=== PATIENT | female | born 1980 | race Caucasian/White ===

== ENCOUNTER → 2017-09-29 15:54 | Outpatient (CLI) | payer OTHER, SELFPAY ==
--- NOTE | 2017-09-29 15:59 | HPBI_ITS ---
MAMMOGRAPHY - BILATERAL SCREENING REASON FOR EXAM: Female, 37 years old. Routine annual screening examination. PERTINENT HISTORY: Grandmother with breast cancer. Bilateral breast reduction surgery. TECHNIQUE: Digital bilateral breast mandy (3D mammographic acquisition) in the CC and MLO projections. 2-D mediolateral oblique (MLO) and craniocaudad (CC) views of both breasts were obtained. CAD: Full Field Digital Mammography with Computer Added Detection was performed. COMPARISON: None. Baseline examination. FINDINGS: Breast Composition: There are scattered areas of fibroglandular density. There are no dominant masses or suspicious calcifications. No other significant abnormalities are identified. HPBI/SCREENING MAMM (CAD), BILAT IMPRESSION: Negative screening mammogram. Yearly followup mammogram recommended. (A) ASSESSMENT CATEGORY: BIRADS Category 1: Negative. A letter regarding these results will be sent to the patient by the facility within 30 days. Approximately 10% of breast cancers are not detected by mammography. A normal mammogram should not delay biopsy of a clinically suspicious abnormality. [id number] Electronically Signed: Mina Manzano MD at 8:21 EST Tel [phone], Service support ,
== END ==
PROVIDERS: Family Provider Family Medicine; PCP Family Medicine; Visit Provider Obstetrics & Gynecology
DX: Z12.31 Encounter for screening mammogram for malignant neoplasm of breast (principal)
CPT/HCPCS: 77063; 77067

== ENCOUNTER 2018-03-21 08:23 | Day surgery (SDC) | payer OTHER, SELFPAY ==
[2018-03-21] VITALS (7 sets, daily range): BP systolic 110–118; BP diastolic 60–69; PULSE 46–65; RESP 16–18; TEMP 36.4–36.7; O2SAT 95–99; BMI 33.5
--- NOTE | 2018-03-21 | IMM_PTH ---
PATIENT: SOMMER CALDERON LOC: [facility] [place] U#:[id number] AGE/SX: 37/F ROOM: RE03/21/[address]: Dr. Isak Jones MD : 1980 BED: DIS: 03/21/2018 SPEC #: [id number] RECD: 03/22/18 14:13 STATUS: TYLER REQ #: [id number] GO: 03/21/18 00:[address]: Isak Jones DEPT: IMMUNOHISTOCHEMISTRY RECD BY: Tayler Lei ENTERED: 03/22/18 14:14 SP TYPE: IMMUNO OTHR DR: Dr. Neri Morataya MD Tissues: Skin of upper extremity and shoulder Procedures: [place]-1 (initial) CK5-6 (add) P40 (add) S-100 (add) PHYSICIAN & INSTITUTION [place] [address] SPECIMEN INFORMATION: Tissue Source: Melanoma right posterior shoulder Clinical Info: Melanoma right posterior shoulder Specimen Number: [id number] #2 CPT code: 36358, 69907 x3 METHODOLOGY: Deparaffinized sections of prefer/formalin-fixed tissue or PAP/DQ stained slides are incubated with monoclonal/polyclonal antibodies/oligonucleotide probes. Localization is made via biotin free immunoperoxidase method. Appropriate controls are performed and reacted as expected. Results on target cell population are indicated in the following table: RESULTS: ANTIBODY / CLONE RESULT Block 2 S-100 (4C4.9) positive MART-1 (A-103) positive CK5-6 (D5 & 1684) negative P40 (BC28) negative These tests were developed and their performance characteristics determined by [facility]. They may not have been cleared or approved by the U.S. Food and Drug Administration. The FDA has determined that such clearance or approval is not necessary. INTERPRETATION: Melanoma right posterior shoulder, excisional biopsy: Scar and residual invasive malignant melanoma. See comment. DEMARCO:stephen 04/05/18 Comment: The specimen was sent to [email or web address] for expert opinion and above diagnosis is rendered. The complete report is viewable in patient?s EMR. Case has been reviewed in consultation with Dr. Cancino who concurs with the above diagnosis. IDC:[email or web address]
[2018-03-21 08:46] LABS: Internal QC Validated? YES +Cl - CLEAR BKGD; Pregnancy, Urine Negative Negative
--- NOTE | 2018-03-21 10:00 | LES_PTH ---
PATIENT: SOMMER CALDERON [place] [facility] [place][id number] AGE/SX: 37/F ROOM: RE03/21/[address]: Dr. Isak Jones MD : 1980 BED: DIS: 03/21/2018 SPEC #: [id number] RECD: 03/21/18 13:23 STATUS: TYLER REQ #: [id number] GO: 03/21/18 10:[address]: Isak Jones DEPT: SURGICAL PATHOLOGY RECD BY: Harrison Austin ENTERED: 03/21/18 13:35 SP TYPE: Lesion OTHR DR: Dr. Neri Morataya MD Tissues: Skin of upper extremity and shoulder Procedures: Surgery Specimen Level IV HEADER OPERATION: Completion excision melanoma right posterior shoulder PRE-OP DIAGNOSIS: Melanoma right posterior shoulder TISSUE SUBMITTED: Melanoma right posterior shoulder, suture at 12 o?clock MICROSCOPIC DIAGNOSIS Melanoma right posterior shoulder, excisional biopsy: Scar and residual invasive malignant melanoma. See comment. SJ:rg 04/05/18 COMMENT Histologic type: superficial spreading type Tumor thickness: 1.0 mm Mitotic rate: no mitoses identified Ulceration: not identified Regression: not identified Lymphovascular invasion: not identified Perineural invasion: not identified Microsatellitosis: not identified Peripheral margin: see note. Deep margin (base of specimen): negative Note: The tumor is present close (less than 1.0 mm) to the black inked margin. The provided S-100, MART1, CK5/6 and P-40 stains are reviewed. The specimen was sent to [email or web address] for expert opinion and reviewed by Dr. Nino Ramírez and above diagnosis is rendered. The complete report is viewable in the patient?s EMR. The tumor is close (<1 mm) to the black inked margin (12 o?clock margin). Please also make reference to previous specimen from [facility] ([id number]), right lateral shoulder, shave removal with diagnosis of superficial spreading melanoma. Immunohistochemistry ([id number]) supports the above diagnosis. Case has been reviewed in consultation with Dr. Cancino who concurs with the above diagnosis. IDC:AM MICROSCOPIC DESCRIPTION Slides are reviewed. GROSS DESCRIPTION Received in fixative is one container labeled with the patient's name and designated melanoma right posterior shoulder, suture at 12 o'clock. The specimen consists of a round piece of mendez-white skin measuring 1 x 0.9 cm and up to 0.4 cm in thickness. The specimen is oriented by a suture identifying the 12 o?clock position. The specimen is inked as follows: 12 o?clock ? black, 6 o?clock ? blue, 3 o?clock ? green and 9 o?clock ? yellow. The specimen is serially sectioned and submitted entirely in two cassettes as follows: 1 ? 3 and 9 o?clock margin, 2 ? rest of the specimen. / SJ:rg 03/21/18 TC:0 CPT: 89104
--- NOTE | 2018-03-21 10:44 | OP.PN_ITS ---
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 1 cm superficial spreading melanoma right posterior shoulder with a shave thickness of 0.6 mm. 2. Family history of skin cancer. Post-Operative Diagnosis: Same. Surgery/Procedure Performed:: Completion excision 1 cm superficial spreading melanoma right posterior shoulder with a shave thickness of 0.6 mm. Description of Surgical Findings:: 37 year old woman presents with a recent diagnosis of superficial spreading melanoma on her right posterior shoulder that showed a shave thickness of 0.6 mm after a shave biopsy on 02/20/18. She stated the lesion had changed color and had increased on size over the last several months. The pathology report also stated the deep margin was focally involved. She denies any problems with healing of the biopsy scar. Today the patient underwent completion excision 1 cm superficial spreading melanoma right posterior shoulder with a shave thickness of 0.6 mm. Size of defect right posterior shoulder - 1.4 x 1.1 x 0.5 cm. Estimated Blood Loss: 5 ml. Specimen's removed: Superficial spreading melanoma right posterior shoulder with shave thickness of 0.6 mm to Pathology. Drains: None. Type of Anesthesia:: Local MAC - xylocaine with epinephrine and IV sedation. - Admit VTE Documentation VTE Present on Admission: No VTE Mechan Device Prophylaxis: SCD's VTE Pharm Prophylaxis ordered?: No
--- NOTE | 2018-03-21 10:52 | PCM.DC ---
You will use the following diet at home:: No restrictions Discharge Activity: May not drive while taking narcotic pain medications., May Shower - in two days. Return to work on:: 03/29/18 - tentative May shower in (days): 2 May resume sexual activity in: No Restrictions Weight Bearing Status: Weight bearing as tolerated Call your doctor if your incision/area has: Continuous Slow Oozing, Sudden Increased Bleeding, Increased Pain/ Swelling, Increased Redness, Foul Smelling Discharge, Swelling at the incision site Call your doctor if you observe: Fever of 101 or Higher, Coldness, Increased Pain, Shortness of breath, Chest pain, Calf discomfort, Uncontrolled pain Suture Line Care: - - daily dressing changes with silver. will do first dressing change in office tomorrow. Change Dressing in (Days):: 1 - will change in office. Cleanse incision/area with: Soap & Water - may cleanse the wound with soap and water at the time of the dressing changes., - - may get the wound wet in the shower at the time of the dressing changes. Allergies/Adverse Reactions: Allergies Penicillins [PCN] Allergy (Verified 03/16/18 14:20) Rash Medications to take at Discharge B Complex with Vitamin C [B-Complex Plus Vitamin C] 1 ea PO DAILY 02/13/16 Clindamycin HCl [Cleocin] 300 mg PO TID #30 cap 03/21/18 Oxycodone HCl/Acetaminophen [Percocet 5/325] 1 - 2 tab PO 4X/DAY PRN PRN 5 Days #40 tab 03/21/18 The following prescriptions were given: Oxycodone HCl/Acetaminophen [Percocet 5/325] 1 - 2 tab PO 4X/DAY PRN PRN 5 Days #40 tab PRN Reason: Pain Clindamycin HCl [Cleocin] 300 mg PO TID #30 cap Primary Care Physician: Neri Morataya MD [Primary Care Provider] - Test Results: Test results from this visit will be discussed in further detail at your follow-up appointment, if applicable. Please Follow Up With: Isak Jones MD - call [phone] if any questions. When: tomorrow 03/22/18 at 1130 am. Proposed Discharge Date: 03/21/18
--- NOTE | 2018-03-21 10:57 | DCINST_ITS ---
You will use the following diet at home:: No restrictions Discharge Activity: May not drive while taking narcotic pain medications., May Shower - in two days. Return to work on:: 03/29/18 - tentative May shower in (days): 2 May resume sexual activity in: No Restrictions Weight Bearing Status: Weight bearing as tolerated Call your doctor if your incision/area has: Continuous Slow Oozing, Sudden Increased Bleeding, Increased Pain/ Swelling, Increased Redness, Foul Smelling Discharge, Swelling at the incision site Call your doctor if you observe: Fever of 101 or Higher, Coldness, Increased Pain, Shortness of breath, Chest pain, Calf discomfort, Uncontrolled pain Suture Line Care: - - daily dressing changes with silver. will do first dressing change in office tomorrow. Change Dressing in (Days):: 1 - will change in office. Cleanse incision/area with: Soap & Water - may cleanse the wound with soap and water at the time of the dressing changes., - - may get the wound wet in the shower at the time of the dressing changes. Allergies/Adverse Reactions: Allergies Penicillins [PCN] Allergy (Verified 03/16/18 14:20) Rash Medications to take at Discharge B Complex with Vitamin C [B-Complex Plus Vitamin C] 1 ea PO DAILY 02/13/16 Clindamycin HCl [Cleocin] 300 mg PO TID #30 cap 03/21/18 Oxycodone HCl/Acetaminophen [Percocet 5/325] 1 - 2 tab PO 4X/DAY PRN PRN 5 Days #40 tab 03/21/18 The following prescriptions were given: Oxycodone HCl/Acetaminophen [Percocet 5/325] 1 - 2 tab PO 4X/DAY PRN PRN 5 Days #40 tab PRN Reason: Pain Clindamycin HCl [Cleocin] 300 mg PO TID #30 cap Primary Care Physician: Neri Morataya MD [Primary Care Provider] - Test Results: Test results from this visit will be discussed in further detail at your follow- up appointment, if applicable. Please Follow Up With: Isak Jones MD - call [phone] if any questions. When: tomorrow 03/22/18 at 1130 am. Proposed Discharge Date: 03/21/18
--- NOTE | 2018-03-21 23:22 | OP.PCM_ITS ---
Report of Operation Date of Procedure: 03/21/18 Pre-Operative Diagnosis: 1. 1 cm superficial spreading melanoma right posterior shoulder with a shave thickness of 0.6 mm. 2. Family history of skin cancer. Post-Operative Diagnosis: Same. Surgery/Procedure Performed:: Completion excision 1 cm superficial spreading melanoma right posterior shoulder with a shave thickness of 0.6 mm. Description of Surgical Findings:: 37 year old woman presents with a recent diagnosis of superficial spreading melanoma on her right posterior shoulder that showed a shave thickness of 0.6 mm after a shave biopsy on 02/20/18. She stated the lesion had changed color and had increased on size over the last several months. The pathology report also stated the deep margin was focally involved. She denies any problems with healing of the biopsy scar. Patient was informed of the risks and complications of the procedure including alternatives to surgery. These were discussed with the patient personally. Patient voices understanding and wishes to proceed. Some of the risks and complications were included in a form from the [place] [employer]. Size of defect right posterior shoulder - 1.4 x 1.1 x 0.5 cm. carton forming machine tender: None Type of Anesthesia:: Local MAC - xylocaine with epinephrine and IV sedation. Specimen's removed: Superficial spreading melanoma right posterior shoulder with shave thickness of 0.6 mm to Pathology. Drains: None. Estimated Blood Loss (mL): 5 ml. Description of Procedure: Patient was taken to OR in supine position and was given IV sedation. Extra blankets were placed underneath the right shoulder to expose the lesion on the right posterior shoulder. The right posterior shoulder lesion was then prepped and draped in the usual fashion. SCD's were placed for DVT prophylaxis. Perioperative antibiotics were given intravenously. Using xylocaine with epinephrine, the right posterior shoulder lesion was infiltrated. After waiting 5 minutes for the anesthetic to take effect, a completion excision of the shaved melanoma lesion was done with a couple mm margin in all directions thus making it a 1.4 cm excision. The excision was full thickness into the subcutaneous tissue. A suture was placed at the 12 oclock position for pathology orientation. The lesion was then sent to Pathology for analysis to rule out carcinoma. Hemostasis was obtained with electrocautery. The dimensions of the wound after excision of the melanoma lesion was 1.4 x 1.1 x 0.5 cm. The wound was dressed with Aquacel Silver and secured with 3-0 Nylon tie over stent suture dressing. This was followed by a small gauze dressing. Patient tolerated the procedure well and was sent to PACU in satisfactory condition. She will be sent home on antibiotics and pain medication. She will followup in the office tomorrow for removal of the dressing and to instruct the patient on the daily Silver dressing change. She will then followup on a weekly basis until the pathology report is available. Once it is available, as long as the final thickness of the melanoma remains less than 1 mm thus making it a thin melanoma, then can proceed with wide excision of the melanoma with a 1 cm margin in all directions down to the muscular fascia. Reconstruction will be with a local skin flap. If the final thickness is greater than 1 mm, then she would need evaluation at a tertiary center for a sentinel lymph node biopsy prior to the definitive wide excision of the melanoma with reconstruction. Grafts/Implants Used: None. - Complications None. - Admit VTE Documentation VTE Present on Admission: No VTE Mechan Device Prophylaxis: SCD's VTE Pharm Prophylaxis ordered?: No Code Visit Surgery Charges CPT - 31607 ICD-10 - C43.61, Z80.8
== END 2018-03-21 12:04 | disposition home or self-care (01) ==
LOC: SDC 08:27 → AC 08:29
PROVIDERS: Family Provider Family Medicine; PCP Family Medicine; Visit Provider Surgery
PROC: (CPT 11602; principal; 2018-03-21 09:50)
DX: C43.61 Malignant melanoma of right upper limb, including shoulder (principal); Z80.8 Family history of malignant neoplasm of other organs or systems
CPT/HCPCS: 11602; 81025; 88305; 88341; 88342; J7120

== ENCOUNTER → 2018-05-18 11:50 | Outpatient (CLI) | payer OTHER, SELFPAY ==
[2018-05-18 14:38] LABS: PTHIN 90.8 pg/mL (18.4-80.1); Vitamin D,25 Hydroxy 29.7 ng/mL (29.95-100.01)
[2018-05-18 14:41] LABS: ALB/GLOB Ratio 1.1 RATIO (0.9-2.4); AST(SGOT) 17 U/L (15-37); Alanine Aminotransfer ALT/SGPT 26 U/L (13-56); Albumin, Serum 3.9 g/dL (3.2-5.0); Alkaline Phosphatase 83 U/L (45-117); Anion Gap 9 (5-15); BUN 11 mg/dL (7-18); BUN/Creat Ratio 14.1 RATIO (10-20); Calcium,Total 9.8 mg/dL (8.5-10.1); Chloride 105 mmol/L (98-107); Creatinine, Serum 0.78 mg/dL (0.55-1.02); EST Glomerular Filtration Rate 89 mL/min (>60); Est Glom Filt Rate - Afr Amer 107 mL/min (>60); Globulin 3.6 g/dL (2.2-4.2); Glucose 82 mg/dL (74-106); Potassium 4.3 mmol/L (3.5-5.1); Protein, Total 7.5 g/dL (6.4-8.2); Sodium Level 137 mmol/L (136-145); Thyroid Stim Hormone (TSH) 1.22 uIU/mL (0.358-3.74)
== END ==
PROVIDERS: Family Provider Family Medicine; PCP Family Medicine; Visit Provider Family Medicine
DX: E83.52 Hypercalcemia (principal)
CPT/HCPCS: 36415; 80053; 82306; 83970; 84443

== ENCOUNTER → 2018-08-25 14:43 | Outpatient (CLI) | payer OTHER, SELFPAY ==
[2018-08-25 16:19] LABS: Free T3 2.9 pg/mL (2.18-3.98); T4 Free Direct 0.89 ng/dL (0.76-1.46); T4 Total, Thyroxin 6.6 ug/dL (4.8-13.9); Thyroid Stim Hormone (TSH) 1.18 uIU/mL (0.358-3.74)
[2018-08-25 16:23] LABS: Hemoglobin A1c 6.1 % (4.2-6.3)
[2018-08-25 16:26] LABS: T3 Total - Triiodothyronine 1.21 ng/mL (0.6-1.81)
[2018-08-31 08:49] LABS: HPV Reflexed? NOT INDICATED
== END ==
PROVIDERS: Visit Provider Obstetrics & Gynecology
DX: N92.6 Irregular menstruation, unspecified (principal); Z12.4 Encounter for screening for malignant neoplasm of cervix; Z86.32 Personal history of gestational diabetes
CPT/HCPCS: 83036; 84436; 84439; 84443; 84480; 84481; 87624; 88175; G0145

== ENCOUNTER → 2018-10-02 11:53 | Outpatient (CLI) | payer OTHER, SELFPAY ==
[2018-04-05 08:42] VITALS: BMI 33.3
[2018-10-02 13:11] LABS: PTHIN 59.6 pg/mL (18.4-80.1); Vitamin D,25 Hydroxy 23.1 ng/mL (29.95-100.01)
[2018-10-02 13:17] LABS: Anion Gap 9 (5-15); BUN 14 mg/dL (7-18); Calcium,Total 9.7 mg/dL (8.5-10.1); Chloride 107 mmol/L (98-107); Creatinine, Serum 0.78 mg/dL (0.55-1.02); EST Glomerular Filtration Rate 89 mL/min (>60); Est Glom Filt Rate - Afr Amer 107 mL/min (>60); Glucose 88 mg/dL (74-106); Potassium 4.3 mmol/L (3.5-5.1); Sodium Level 136 mmol/L (136-145); Thyroid Stim Hormone (TSH) 1.23 uIU/mL (0.358-3.74)
== END ==
PROVIDERS: Visit Provider Family Medicine
DX: E21.1 Secondary hyperparathyroidism, not elsewhere classified (principal); E83.52 Hypercalcemia
CPT/HCPCS: 36415; 80048; 82306; 83970; 84443

== ENCOUNTER → 2019-09-12 11:02 | Outpatient (CLI) | payer OTHER, SELFPAY ==
[2018-04-05 08:42] VITALS: BMI 33.3
[2019-09-12 14:19] LABS: Follicle Stimulating Hormone 5.7 mIU/mL
[2019-09-15 15:23] LABS: Anti-Mullerian Hormone,Serum 2.46 ng/mL (.)
== END ==
PROVIDERS: Visit Provider Obstetrics & Gynecology
DX: E28.8 Other ovarian dysfunction (principal); Z86.32 Personal history of gestational diabetes
CPT/HCPCS: 36415; 83001; 83036; 83516

== ENCOUNTER → 2019-09-28 10:52 | Outpatient (CLI) | payer OTHER, SELFPAY ==
[2018-04-05 08:42] VITALS: BMI 33.3
[2019-09-28 13:56] LABS: Progesterone Level 7.45 ng/mL (See Comment)
== END ==
PROVIDERS: Visit Provider Obstetrics & Gynecology
DX: E28.8 Other ovarian dysfunction (principal)
CPT/HCPCS: 36415; 84144

== ENCOUNTER → 2020-07-28 09:20 | Outpatient (CLI) | payer OTHER, SELFPAY ==
[2018-04-05 08:42] VITALS: BMI 33.3
--- NOTE | 2020-07-28 09:26 | RAD_ITS ---
STUDY: X-RAY - RIGHT HAND, ATTENTION FOR FINGER REASON FOR EXAM: Female, 40 years old. PT FELL, NOW PAIN AND SWELLING ULNAE PIP AREA TECHNIQUE: 3 view(s) of the finger were obtained. COMPARISON: None. FINDINGS: Normal metacarpal head. Normal metacarpophalangeal joint. Normal proximal phalanx. Normal middle phalanx. Normal distal phalanx. Normal interphalangeal joint. RAD/Finger(s) Min 2 Views IMPRESSION: Normal x-ray examination of the finger. Electronically Signed: Yissel Montalvo MD at 5:54 EST , Service support ,
== END ==
PROVIDERS: PCP Family Medicine; Referring Provider Family Medicine; Visit Provider Family Medicine
DX: S63.601A Unspecified sprain of right thumb, initial encounter (principal)
CPT/HCPCS: 73140

== ENCOUNTER → 2020-09-10 09:34 | Outpatient (CLI) | payer OTHER, SELFPAY ==
[2018-04-05 08:42] VITALS: BMI 33.3
[2020-09-15 16:22] LABS: HPV APTIMA, High Risk Negative (Negative)
== END ==
PROVIDERS: PCP Family Medicine; Visit Provider Obstetrics & Gynecology
DX: Z12.4 Encounter for screening for malignant neoplasm of cervix (principal)
CPT/HCPCS: 87624; 88175; G0145

== ENCOUNTER 2021-12-07 09:48 | Outpatient (CLI) | payer OTHER, SELFPAY ==
--- NOTE | 2021-12-07 09:51 | BI_ITS ---
MAMMOGRAPHY - BILATERAL SCREENING REASON FOR EXAM: Female, 41 years old. Routine annual screening examination. PERTINENT HISTORY: Grandmother with breast cancer. History of prior bilateral breast reduction surgery. TECHNIQUE: Digital bilateral breast mynor (3D mammographic acquisition) in the CC and MLO projections. 2-D mediolateral oblique (MLO) and craniocaudad (CC) views of both breasts were obtained. CAD: Full Field Digital Mammography with Computer Added Detection was performed. COMPARISON: Comparison is made with prior study dated 09/29/2017. FINDINGS: Breast Composition: There are scattered areas of fibroglandular density. There are no dominant masses or suspicious calcifications. No other significant abnormalities are identified. There has been no significant change since the prior study. BI/SCRN MAMM (CAD)W/MYNOR BILAT IMPRESSION: Stable bilateral screening mammogram. Yearly follow-up mammogram recommended. (A) ASSESSMENT CATEGORY: BIRADS Category 1: Negative. A letter regarding these results will be sent to the patient by the facility within 30 days. Approximately 10% of breast cancers are not detected by mammography. A normal mammogram should not delay biopsy of a clinically suspicious abnormality. [id number] Electronically Signed: Mina Manzano MD at 10:34 EDT ,
== END 2021-12-07 23:59 | disposition home or self-care (01) ==
LOC: OPBI 09:49
PROVIDERS: PCP Family Medicine; Referring Provider Obstetrics & Gynecology; Visit Provider Obstetrics & Gynecology
DX: Z12.31 Encounter for screening mammogram for malignant neoplasm of breast (principal)
CPT/HCPCS: 77063; 77067

== ENCOUNTER 2022-12-28 10:03 | Emergency (ER) | payer OTHER, SELFPAY ==
[2022-12-28 10:04] VITALS: BP 152/106; PULSE 66; RESP 14; TEMP 36.4; O2SAT 100; BMI 34.7
--- NOTE | 2022-12-28 10:45 | CT_ITS ---
STUDY: CT ABDOMEN AND PELVIS WITHOUT CONTRAST REASON FOR EXAM: Female, 42 years old. Left flank pain and left lower quadrant pain since 9:00 this morning. RADIATION DOSAGE (If Supplied By Facility): CTDIvol = ( 20.76 ) mGy, DLP = ( 994.35 ) mGycm TECHNIQUE: Transaxial images were obtained from the dome of the diaphragm to the symphysis pubis without oral contrast, and without intravenous contrast. Sagittal and coronal images were reconstructed. Individualized dose optimization techniques were used for this CT. COMPARISON: None. FINDINGS: Tiny calcified granuloma in the posterior medial segment of the left lower lobe. Calcified left hilar lymph node. The visualized portions of the heart are within normal limits. There is decreased attenuation of the liver consistent with steatosis. There are multiple gallstones. There is a benign calcified granuloma of the spleen. Normal pancreas. Normal bilateral adrenal glands. Normal right kidney. There is engorgement of the left kidney. Mild degree of the left hydronephrosis and left hydroureter due to a 3.7 mm calculus at the base of the bladder on the right side most likely representing a recently passed left ureteral calculus. Normal visualized stomach. Normal small intestine. Normal colon. The appendix is visualized and appears normal. Normal abdominal aorta. Normal inferior vena cava. Normal retroperitoneum. Normal urinary bladder. There is a small umbilical hernia containing fat. Normal osseous structures. CT/Abdomen/Pelvis without Cont IMPRESSION: 3.7 mm calculus at the base of the bladder on the left side suggestive of a recently passed left ureteral calculus. Diffuse fatty infiltration of the liver. Multiple gallstones. Electronically Signed: Mina Manzano MD at 11:55 EDT ,
--- NOTE | 2022-12-28 10:46 | EX.ED.DYSGE1 ---
HPI History of Present Illness Chief Complaint: Flank Pain Informant: patient Onset/Context/Timing Onset: Today Context: Sudden Onset Current Severity: Moderate Maximum Severity: Severe Narrative Narrative: Patient presents with rather abrupt onset of left flank pain at 9 AM this morning. She states she felt fine earlier in the day. She states pain has eased up somewhat at this time. She denies recent urinary symptoms. No history of kidney stones. [facility] Medical History Abnormal Pap smear of cervix Skin cancer Home Medications B-complex with vitamin C 1 ea PO DAILY 02/13/16 [History Last Taken 12/22/16 07:00] ascorbic acid (vitamin C) 500 mg capsule,extended release 500 mg PO DAILY 11/22/22 [History Last Taken Unknown] cholecalciferol (vitamin D3) 50 mcg (2,000 unit) capsule 50 mcg PO DAILY 11/22/22 [History Last Taken Unknown] Allergy/AdvReac Type Severity Reaction Status Date / Time Dressing: Non-Medicated Allergy Rash Verified 12/28/22 10:05 Penicillins [PCN] Allergy Rash Verified 12/28/22 10:05 Family History Mother Heart disease Grandmother Breast cancer Colon cancer Grandfather Heart disease Surgical History Broken ankle History of bilateral breast reduction surgery History of History of D&C Status post surgical removal of malignant neoplasm of skin Social History Smoking Status: Never smoker alcohol intake: never substance use type: does not use caffeine: Yes what type of physical activity do you participate in: walking and aerobics frequency: 3-4 times per week seatbelt use: always do you feel safe at home: Yes additional social history: - Ra ROS ROS ED Constitutional Constitutional ED: Denies chills or fever(s) Eyes Eyes: Denies change in vision or discharge from eye(s) ENT ENT ED: Denies discharge from eye(s), rhinorrhea or sore throat Cardiovascular Cardiovascular: Denies chest pain or palpitations Respiratory/Chest Respiratory/Chest: Denies cough or dyspnea Gastrointestinal Gastrointestinal: Reports abdominal pain; Denies diarrhea, nausea or vomiting Genitourinary Genitourinary ED: Denies difficulty urinating or dysuria Musculoskeletal Musculoskeletal: Reports back pain; Denies extremity pain Integumentary Denies Abrasions or rash Neurologic Neurologic: Denies headache(s) or weakness Psychiatric Psychiatric: Denies anxiety or depression Allergic/Immunologic Allergic/Immunologic ED: Denies lip swelling or urticaria EXAM Physical Exam Const Vital Signs: 12/28/22 10:04 12/28/22 10:19 Temperature 97.5 F L Temperature Source Temporal Pulse Rate 66 Respiratory Rate 14 Respiratory Effort Normal Non-Labored Respiratory Pattern Normal Blood Pressure 152/106 H Blood Pressure Mean 121 Pulse Ox 100 Oxygen Delivery Method Room Air Positive well nourished and well developed General Appearance ED: well developed HEENT Reports normocephalic and head/scalp atraumatic Eyes PERRL and EOMs intact bilaterally Neck supple Chest Wall inspection of chest normal and palpation of chest normal Resp normal respiratory effort and clear to auscultation bilaterally Cardio regular rate and regular rhythm GI GI Narrative: Abdomen soft with no reproducible tenderness. Hypoactive bowel sounds noted. Palpation: soft Back/Spine no CVA tenderness Extremity normal to inspection Neuro oriented x3 and no sensory deficits noted Sensorium / Orientation: alert Motor Exam: strength 5/5 throughout Psych mental status grossly normal Skin no rashes or lesions noted MDM MDM MDM Narrative Medical decision making narrative: Patient was given morphine, Toradol, Zofran, IV fluids. Labwork obtained to evaluate for leukocytosis, anemia, and electrolyte derangement. Urinalysis obtained to evaluate for infection/hematuria. CT flank obtained given high suspicion for kidney stone. Lab Data Attestation: I reviewed the patient's lab results. Labs: Laboratory Results - last 24 hr 12/28/22 12/28/22 12/28/22 10:20 10:20 10:20 WBC 9.1 RBC 4.08 L Hgb 12.3 Hct 36.2 L MCV 88.7 MCH 30.1 MCHC 34.0 RDW Std Deviation 39.0 RDW Coeff of Umesh 12.1 Plt Count 357 MPV 9.5 Immature Gran % (Auto) 0.200 Neut % (Auto) 57.4 Lymph % (Auto) 36.1 [place] % (Auto) 5.1 Eos % (Auto) 0.9 Baso % (Auto) 0.3 Absolute Neuts (auto) 5.2 Absolute Lymphs (auto) 3.30 Nucleated RBC % 0 Sodium 139 Potassium 4.2 Chloride 108 H Carbon Dioxide 24.0 Anion Gap 7 BUN 11 Creatinine 0.93 Estim Creat Clear Calc 74.52 Est GFR (MDRD) Af Amer 85 Est GFR (MDRD) Non-Af 71 BUN/Creatinine Ratio 11.8 Glucose 120 H Calcium 10.8 H Serum , Qual NEGATIVE Urine Color Urine Clarity Urine pH Ur Specific [place] Urine Protein Urine Glucose (UA) Urine Ketones Urine Occult Blood Urine Nitrite Urine Bilirubin Urine Urobilinogen Ur Leukocyte Esterase Urine RBC Urine WBC Ur Squamous Epith Cells Amorphous Sediment Urine Bacteria Urine Mucus 12/28/22 11:00 WBC RBC Hgb Hct MCV MCH MCHC RDW Std Deviation RDW Coeff of Umesh Plt Count MPV Immature Gran % (Auto) Neut % (Auto) Lymph % (Auto) [facility] % (Auto) Eos % (Auto) Baso % (Auto) Absolute Neuts (auto) Absolute Lymphs (auto) Nucleated RBC % Sodium Potassium Chloride Carbon Dioxide Anion Gap BUN Creatinine Estim Creat Clear Calc Est GFR (MDRD) Af Amer Est GFR (MDRD) Non-Af BUN/Creatinine Ratio Glucose Calcium Serum , Qual Urine Color Yellow Urine Clarity Sl. Cloudy Urine pH 7.0 Ur Specific [place] 1.015 Urine Protein 30 H Urine Glucose (UA) Normal Urine Ketones Negative Urine Occult Blood 150 H Urine Nitrite Negative Urine Bilirubin Negative Urine Urobilinogen Normal Ur Leukocyte Esterase 25 H Urine RBC 10-25 SEEN Urine WBC 0-5 SEEN Ur Squamous Epith Cells 0-5 SEEN Amorphous Sediment 1+ Urine Bacteria 1+ Urine Mucus 0 SEEN Radiography Diagnostic Testing: Clinical Impression(s) from Imaging Studies Abdomen/Pelvis CT 12/28/22 10:45 IMPRESSION: 3.7 mm calculus at the base of the bladder on the left side suggestive of a recently passed left ureteral calculus. Diffuse fatty infiltration of the liver. Multiple gallstones. Electronically Signed: Mina Manzano MD at 11:55 EDT , Treatment and Re-Evaluation :: On repeat evaluation patient resting much more comfortably. CBC and chemistry studies unremarkable. Renal function is normal. test is negative. Urinalysis does reveal 10-25 RBCs with no sign of infection. CT flank reveals a 3.7 mm calculus at the base of the bladder suggesting a recently passed kidney stone. Multiple gallstones are also noted. Test results are discussed with patient as well as at bedside. She will continue supportive care at home as advised her she may get some spasms even though she has passed the stone into the bladder. Return instructions provided. Discharge Plan Triage Chief Complaint: Flank Pain ED Provider: Agatha Resendez Dx/Rx/DC Orders Clinical Impression: Kidney stone Instructions: ED Kidney Stone, Passed Prescriptions: No Action cholecalciferol (vitamin D3) 50 mcg (2,000 unit) capsule 50 mcg PO DAILY ascorbic acid (vitamin C) 500 mg capsule, extended release 500 mg PO DAILY B-complex with vitamin C 1 EACH tablet 1 ea PO DAILY Primary Care Provider: Neri Morataya Referrals: Neri Morataya MD [Primary Care Provider] - As Needed Disposition Disposition: Home, Self Care
[2022-12-28] MEDS: Morphine 4 MG/ML Syringe IV (10:57)
[2022-12-28] MEDS: Ketorolac 30 MG/ML Syringe IV (10:57)
[2022-12-28] MEDS: Ondansetron 4 MG/2 ML Vial IV (10:57)
[2022-12-28] MEDS: 0.9% Normal Saline 1,000 ML 250 ML IV (10:59)
[2022-12-28 11:07] LABS: Mucous, Urine 0 SEEN /hpf (<or=2+)
[2022-12-28 11:07] LABS: Absolute Neutrophil Count 5.2 X10^3/uL (2.0-7.7); Basophil# 0.03 X10^3/uL; Basophil% 0.3 % (0-1); Eosinophil# 0.08 X10^3/uL; Eosinophils% 0.9 % (0-5); Hematocrit 36.2 % (37-47); Hemoglobin 12.3 g/dL (12.0-15.0); Lymphocyte % 36.1 % (19-41); Mean Corpuscular Hgb 30.1 pg (27.0-32.0); Mean Corpuscular Volume 88.7 fL (81-99); Mean Platelet Vol. 9.5 fl (6.2-12.0); Monocyte# 0.47 X10^3/uL; Monocyte% 5.1 % (0-10); NRBC Flagged by Analyzer 0 % (0-5); Neutrophil # 5.24 X10^3/uL (2.7-7.7); Neutrophil % 57.4 % (47-70); Platelet Count 357 K/mm3 (150-450); RBC Distribution Width CV 12.1 % (11.6-14.6); Red Blood Count 4.08 M/mm3 (4.2-5.4); White Blood Count 9.1 K/mm3 (4.4-11.0)
[2022-12-28 11:10] LABS: Color, Urine Yellow (Yellow); Glucose, Dipstick Normal (Normal); Ketone-Dipstick Negative (Negative); Leukocyte Esterase-Dipstick 25 /ul (Negative); Nitrite-Dipstick Negative (Negative); Occult Blood-Urine 150 /ul (Negative); Protein-Dipstick 30 mg/dl (Negative); Specific Gravity, Urine 1.015 (1.002-1.030); Urine Bilirubin Dipstick Negative (Negative); Urine Clarity Sl. Cloudy (Clear); Urine Urobilinogen Normal (Normal)
[2022-12-28 11:16] LABS: Amorphous Sediment 1+; Bacteria 1+ /hpf (None Seen); Red Blood Cells-Urine 10-25 SEEN /hpf (0-5); Squamous Epithelial Cells - UA 0-5 SEEN /hpf (5-10); White Blood Cells 0-5 SEEN /hpf (0-5)
[2022-12-28 11:21] LABS: Internal QC Validated? YES +Cl - CLEAR BKGD; Pregnancy, Serum, hCG Quali. NEGATIVE Negative
[2022-12-28 11:23] LABS: Anion Gap 7 (5-15); BUN 11 mg/dL (7-18); BUN/Creat Ratio 11.8 RATIO (10-20); Calcium,Total 10.8 mg/dL (8.5-10.1); Chloride 108 mmol/L (98-107); Creatinine, Serum 0.93 mg/dL (0.55-1.02); EST Glomerular Filtration Rate 71 mL/min (>60); Est Glom Filt Rate - Afr Amer 85 mL/min (>60); Estimated Creatinine Clearance 74.52 ml/min; Glucose 120 mg/dL (74-106); Potassium 4.2 mmol/L (3.5-5.1); Sodium Level 139 mmol/L (136-145)
[2022-12-28 12:27] VITALS: BP 115/82; PULSE 76; RESP 14; O2SAT 99
== END 2022-12-28 12:32 | disposition home or self-care (01) ==
PROVIDERS: Emergency Provider Emergency Medicine; PCP Family Medicine; Visit Provider Emergency Medicine
DX: N20.0 Calculus of kidney (principal)
CPT/HCPCS: 74176; 80048; 81001; 84703; 85025; 96374; 96375; 99283; J7030; A4216; J2405

== ENCOUNTER → 2023-01-31 | Outpatient (CLI) | payer OTHER, SELFPAY ==
--- NOTE | 2023-01-31 10:03 | BI_ITS ---
MAMMOGRAPHY - BILATERAL SCREENING REASON FOR EXAM: Female, 42 years old. Routine annual screening examination. PERTINENT HISTORY: Grandmother with breast cancer. History of prior bilateral breast reduction surgery. TECHNIQUE: Digital bilateral breast mynor (3D mammographic acquisition) in the CC and MLO projections. 2-D mediolateral oblique (MLO) and craniocaudad (CC) views of both breasts were obtained. CAD: Full Field Digital Mammography with Computer Added Detection was performed. COMPARISON: Comparison is made with prior study dated December 07, 2021 and September 29, 2017. FINDINGS: Breast Composition: There are scattered areas of fibroglandular density. There are no dominant masses or suspicious calcifications. No other significant abnormalities are identified. There has been no significant change since the prior study. BI/SCRN MAMM (CAD)W/MYNOR BILAT IMPRESSION: Stable bilateral screening mammogram. Yearly follow-up mammogram recommended. (A) ASSESSMENT CATEGORY: BIRADS Category 1: Negative. A letter regarding these results will be sent to the patient by the facility within 30 days. Approximately 10% of breast cancers are not detected by mammography. A normal mammogram should not delay biopsy of a clinically suspicious abnormality. [id number] Electronically Signed: Mnia Manzano MD at 10:56 EDT ,
== END | disposition home or self-care (01) ==
LOC: OPBI 10:02
PROVIDERS: PCP Family Medicine; Referring Provider Registered Nurse; Visit Provider Registered Nurse
DX: Z12.31 Encounter for screening mammogram for malignant neoplasm of breast (principal); Z80.3 Family history of malignant neoplasm of breast
CPT/HCPCS: 77063; 77067

== ENCOUNTER → 2023-12-03 | Outpatient (CLI) | payer OTHER, SELFPAY ==
[2023-12-03 10:00] LABS: Hemoglobin A1c 5.3 % (3.8-5.6)
[2023-12-03 10:04] LABS: ALB/GLOB Ratio 1.1 RATIO (0.9-2.4); AST(SGOT) 17 U/L (15-37); Alanine Aminotransfer ALT/SGPT 25 U/L (13-56); Albumin, Serum 3.9 g/dL (3.2-5.0); Alkaline Phosphatase 74 U/L (45-117); Anion Gap 4 (5-15); BUN 13 mg/dL (7-18); BUN/Creat Ratio 15.2 RATIO (10-20); Calcium,Total 10.9 mg/dL (8.5-10.1); Chloride 108 mmol/L (98-107); Cholesterol 162 mg/dL (200); Creatinine, Serum 0.85 mg/dL (0.55-1.02); EST Glomerular Filtration Rate 77 mL/min (>60); Est Glom Filt Rate - Afr Amer 94 mL/min (>60); Globulin 3.5 g/dL (2.2-4.2); Glucose 97 mg/dL (74-106); High Density Lipoprotein 28 mg/dL; Potassium 4.5 mmol/L (3.5-5.1); Protein, Total 7.4 g/dL (6.4-8.2); Sodium Level 137 mmol/L (136-145); T4 Free Direct 1.02 ng/dL (0.76-1.46); Thyroid Stim Hormone (TSH) 1.15 uIU/mL (0.358-3.74); Triglycerides 159 mg/dL; Very Low Density Lipoprotein 32 mg/dL (5-40)
== END | disposition home or self-care (01) ==
LOC: LAB 09:00
PROVIDERS: PCP Family Medicine; Referring Provider Registered Nurse; Visit Provider Registered Nurse
DX: Z00.00 Encounter for general adult medical examination without abnormal findings (principal); Z13.220 Encounter for screening for lipoid disorders; Z13.29 Encounter for screening for other suspected endocrine disorder
CPT/HCPCS: 36415; 80053; 80061; 83036; 84439; 84443

== ENCOUNTER → 2024-02-02 | Outpatient (CLI) | payer OTHER, SELFPAY ==
--- NOTE | 2024-02-02 08:02 | BI_ITS ---
MAMMOGRAPHY - BILATERAL SCREENING REASON FOR EXAM: Female, 43 years old. Routine annual screening examination. PERTINENT HISTORY: Grandmother with breast cancer. History of prior bilateral breast reduction surgery. TECHNIQUE: Digital bilateral breast mynor (3D mammographic acquisition) in the CC and MLO projections. 2-D mediolateral oblique (MLO) and craniocaudad (CC) views of both breasts were obtained. CAD: Full Field Digital Mammography with Computer Added Detection was performed. COMPARISON: Comparison is made with prior study dated January 31, 2023 and December 07, 2021. FINDINGS: Breast Composition: There are scattered areas of fibroglandular density. There are no dominant masses or suspicious calcifications. Stable bilateral fat containing axillary lymph nodes. No other significant abnormalities are identified. There has been no significant change since the prior study. BI/SCRN MAMM (CAD)W/MYNOR BILAT IMPRESSION: Stable bilateral screening mammogram. Yearly follow-up mammogram recommended. (A) ASSESSMENT CATEGORY: BIRADS Category 2: Benign. A letter regarding these results will be sent to the patient by the facility within 30 days. Approximately 10% of breast cancers are not detected by mammography. A normal mammogram should not delay biopsy of a clinically suspicious abnormality. [id number] Electronically Signed: Mina Manzano MD at 9:00 EDT ,
== END | disposition home or self-care (01) ==
LOC: OPBI 08:02
PROVIDERS: PCP Family Medicine; Referring Provider Registered Nurse; Visit Provider Registered Nurse
DX: Z12.31 Encounter for screening mammogram for malignant neoplasm of breast (principal)
CPT/HCPCS: 77063; 77067

== ENCOUNTER → 2025-01-14 | Outpatient (CLI) | payer OTHER, SELFPAY ==
[2025-01-14 17:41] LABS: Absolute Lymphocyte Count 3.38 X10^3/uL (0.83-4.51); Absolute Neutrophil Count 4.8 X10^3/uL (2.0-7.7); Basophil# 0.03 X10^3/uL; Basophil% 0.3 % (0-1); Eosinophil# 0.09 X10^3/uL; Hematocrit 34.3 % (37-47); Hemoglobin 11.4 g/dL (12.0-15.0); Lymphocyte # 3.38 X10^3/ul (0.83-4.51); Lymphocyte % 37.8 % (19-41); Mean Corp Hgb Conc 33.2 g/dL (32-36); Mean Corpuscular Hgb 28.3 pg (27.0-32.0); Mean Corpuscular Volume 85.1 fL (81-99); Mean Platelet Vol. 9.7 fl (6.2-12.0); Monocyte# 0.58 X10^3/uL; Monocyte% 6.5 % (0-10); NRBC Flagged by Analyzer 0 % (0-5); Neutrophil # 4.84 X10^3/uL (2.7-7.7); Neutrophil % 54.2 % (47-70); Platelet Count 410 K/mm3 (150-450); RBC Distribution Width CV 12.6 % (11.6-14.6); RBC Distribution Width SD 38.8 fl (35.1-43.9); Red Blood Count 4.03 M/mm3 (4.2-5.4); White Blood Count 8.9 K/mm3 (4.4-11.0)
[2025-01-14 18:08] LABS: AST(SGOT) 20 U/L (<=31); Alanine Aminotransfer ALT/SGPT 20 U/L (<=34); Albumin, Serum 4.4 g/dL (3.5-5.0); Alkaline Phosphatase 96 U/L (35-104); Bilirubin, Direct 0.09 mg/dL (0.00-0.30); Lipase 22 U/L (13-75); Protein, Total 7.4 g/dL (5.9-8.4)
== END | disposition home or self-care (01) ==
LOC: MFPLAB 15:31
PROVIDERS: PCP Family Medicine; Visit Provider Nurse Practitioner Family
DX: R10.11 Right upper quadrant pain (principal)
CPT/HCPCS: 36415; 80076; 83690; 85025

== ENCOUNTER → 2025-02-07 | Outpatient (CLI) | payer OTHER, SELFPAY ==
--- NOTE | 2025-02-07 08:00 | BI_ITS ---
EXAM: SCRN MAMM (CAD)W/MYNOR BILAT DATE: 02/07/2025 CLINICAL HISTORY: F, Age 44 y/o , SCREEN FOR BREAST CANCER Grandmother with breast cancer. Prior history of bilateral breast reduction surgery. BREAST CANCER RISK ASSESSMENT: Not assessed. TECHNIQUE: Bilateral screening digital breast tomosynthesis with 2D and 3D images. Computer aided detection. COMPARISON: Prior exam(s) dated February 02, 2024.. FINDINGS: TISSUE DENSITY: The breast tissue is composed of scattered area of fibroglandular density. Bilateral Breast Mammographic Findings: No significant masses, calcifications or other abnormalities are identified. No suspicious masses, areas of developing architectural distortion, or suspicious calcifications. There has been no significant interval change. BI/SCRN MAMM (CAD)W/MYNOR BILAT IMPRESSION: OVERALL FINAL ASSESSMENT: BIRADS 1 NEGATIVE RECOMMENDATION: Routine annual follow-up in 1 Year A letter with findings and recommendations will be mailed to the patient. Reading Location: [place] [id number]
== END | disposition home or self-care (01) ==
LOC: OPBI 08:04
PROVIDERS: PCP Nurse Practitioner Family; Referring Provider Nurse Practitioner Family; Visit Provider Nurse Practitioner Family
DX: Z12.31 Encounter for screening mammogram for malignant neoplasm of breast (principal)
CPT/HCPCS: 77063; 77067